=== PATIENT | male | born 1985 | race American Indian/Alaskan Native ===

== ENCOUNTER 2018-07-06 10:40 | Inpatient (IN) | payer OTHER ==
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
[2018-07-06 11:35] LABS: Basophils % (Auto) 0.6 % (0.0-1.8); Eosinophils % (Auto) 0.5 % (0.0-4.3); Hematocrit 41.6 % (35.5-45.6); Hemoglobin 13.8 gm/dl (11.8-15.2); Lymphocytes # (Auto) 1.3 K/mm3 (1.2-5.4); Mean Corpuscular HGB Conc 33 % (32-34); Mean Corpuscular Hemoglobin 29 pg (28-32); Mean Corpuscular Volume 89 fl (84-94); Monocytes # (Auto) 0.5 K/mm3 (0.0-0.8); Platelet Count 245 K/mm3 (140-440); Red Cell Distribution Width 13.2 % (13.2-15.2)
[2018-07-06 11:57] LABS: Alanine Aminotransferase 17 units/L (7-56); Albumin 4.1 g/dL (3.9-5); BUN/Creatinine Ratio 14; Blood Urea Nitrogen 13 mg/dL (9-20); Calcium 8.8 mg/dL (8.4-10.2); Hemolysis Index 6
[2018-07-06 12:04] LABS: Free T4 (Free Thyroxine) 1.07 ng/dL (0.76-1.46)
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
[2018-07-06 14:11] LABS: Bilirubin,Urine NEG (Negative); Blood,Urine NEG (Negative); Color,Urine Yellow (Yellow); Mucus,Urine FEW /HPF; Protein,Urine <15 mg/dL mg/dL (Negative); Urobilinogen,Urine < 2.0 mg/dL (<2.0)
[2018-07-06 14:18] LABS: Amphetamine Screen,Urine PRESUMPTIVE NEGATIVE; Cannabinoid Screen,Urine PRESUMPTIVE NEGATIVE; Cocaine Screen,Urine PRESUMPTIVE NEGATIVE; Methadone Screen,Urine PRESUMPTIVE NEGATIVE; Opiate Screen,Urine PRESUMPTIVE NEGATIVE
[2018-07-06 14:36] LABS: Benzodiazepines Screen,Urine PRESUMPTIVE POSITIVE
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
[2018-07-06] MEDS ORDERED: TYLENOL PO PRN (15:40)
[2018-07-06] MEDS ORDERED: SODIUM CHLORIDE FLUSH SYRINGE 10 ML IV PRN (15:40)
[2018-07-06] MEDS ORDERED: PROVENTIL IH PRN (15:40)
[2018-07-06] MEDS ORDERED: ZOFRAN IV PRN (15:40)
[2018-07-06] MEDS ORDERED: D50W (25GM) Syringe IV PRN (16:18)
[2018-07-06] MEDS: HumaLOG SUB-Q SCH ×2 (16:30→23:26)
[2018-07-06 16:50] LABS: Creatinine,Urine 198.7 mg/dL (0.1-20.0)
[2018-07-06] MEDS: SODIUM CHLORIDE FLUSH SYRINGE 10 ML IV SCH (23:26)
[2018-07-07] MEDS: HumaLOG SUB-Q SCH ×2 (08:39→12:27)
[2018-07-07] MEDS: SODIUM CHLORIDE FLUSH SYRINGE 10 ML IV SCH (09:31)
--- NOTE | 2018-07-07 11:28 | Discharge Summary ---
Providers - Providers Date of Admission: 07/06/18 15:40 Date of discharge: 07/07/18 Attending physician: JAMILA FRIAS MD Primary care physician: [facility] [employer]PERATOR Hospitalization Reason for admission: MAS due to benzo overdose Condition: Stable Disposition: DC-01 TO HOME OR SELFCARE Time spent for discharge: 32 minutes - Discharge Diagnoses (1) Adv eff benzodiaz tranq Status: Acute (2) Altered mental status Status: Acute (3) Diabetes Status: Acute Core Measure Documentation - Palliative Care Palliative Care/ Comfort Measures: Not Applicable - Core Measures Any of the following diagnoses?: none Exam - Constitutional Vitals: Temp Pulse Resp BP Pulse Ox 97.6 F 54 L 18 129/83 97 07/06/18 22:33 07/06/18 22:33 07/06/18 22:33 07/06/18 22:33 07/06/18 22:33 Plan Activity: no restrictions Weight Bearing Status: Full Weight Bearing Diet: diabetic Additional Instructions: Patient carlitos he will call his PCP at [place] and will make an appointment. He didn't know her name. Follow up with: GILBERT FRANKLIN MD [Primary Care Provider] - 3-5 Days
[2018-07-07 12:50] VITALS: BP 128/90
== END 2018-07-07 13:31 | disposition home or self-care (01) | DRG 72 ==
LOC: ED 10:40 → 3A 15:40
PROVIDERS: ADMIT Internal Medicine; ATTEND Internal Medicine
DX: G93.40 Encephalopathy, unspecified (principal); E11.9 Type 2 diabetes mellitus without complications; I10 Essential (primary) hypertension; T42.4X5A Adverse effect of benzodiazepines, initial encounter; Y92.89 Other specified places as the place of occurrence of the external cause
CPT/HCPCS: 36415; 70450; 72125; 74177; 80053; 80307; 80320; 81001; 82043; 82140; 82550; 82962; 83036; 83880; 84439; 84443; 84484; 85025; 85379; 87806; 93005; 93010; 93306; G0480; J1815; Q9967